=== PATIENT | male | born 1975 | race African-American/Black ===

== ENCOUNTER 2016-09-22 13:50 | Emergency (ER) | payer OTHER ==
--- NOTE | 2016-09-22 14:20 | ER Document Report ---
HPI - HPI Patient complains to provider of: rash Pain Level: 0 Context: 41 yo male c/o rash to both arms and back of neck x 2 weeks. denies new meds or contacts. + pruritic. no fever Associated Symptoms: None Exacerbated by: Denies Relieved by: Denies Similar symptoms previously: No Recently seen / treated by doctor: No - ROS Systems Reviewed and Negative: Yes All other systems reviewed and negative - DERM Skin Color: Normal Past Medical History - General Information source: Patient - Social History Smoking Status: Never Smoker Frequency of alcohol use: None Drug Abuse: None Lives with: Family Family History: CVA, Hypertension Patient has suicidal ideation: No Patient has homicidal ideation: No - Past Medical History Cardiac Medical History: Reports: Hx Hypertension Neurological Medical History: Reports: Hx Cerebrovascular Accident Renal/ Medical History: Denies: Hx Peritoneal Dialysis - Immunizations Hx Diphtheria, Pertussis, Tetanus Vaccination: No Vertical Provider Document - CONSTITUTIONAL Agree With Documented VS: Yes Exam Limitations: No Limitations - INFECTION CONTROL TRAVEL OUTSIDE OF THE [place] IN LAST 30 DAYS: No - HEENT HEENT: Atraumatic, Normal ENT Exam, PERRLA Notes: no buccal or lingual lesions - NECK Neck: Normal Inspection, Supple - RESPIRATORY Respiratory: Breath Sounds Normal, No Respiratory Distress O2 Sat by Pulse Oximetry: 98 - CARDIOVASCULAR Cardiovascular: Regular Rate, Regular Rhythm - MUSCULOSKELETAL/EXTREMETIES Musculoskeletal/Extremeties: MAZEINAB FROM - NEURO Level of Consciousness: Awake, Alert - DERM Integumentary: Warm, Dry, Rash - + eczematous patches to bilat volar forearms and posterior neck. + scaling. no sloughing Course - Re-evaluation Re-evalutation: 09/22/16 14:27 BP noted to be elevatd. pt has hx/o HTN. taking meds as prescribed. denies any headache/dizziness, - Vital Signs Vital signs: Temp Pulse Resp BP Pulse Ox 97.8 F 76 14 157/98 H 98 09/22/16 13:57 09/22/16 13:57 09/22/16 13:57 09/22/16 13:57 09/22/16 13:57 Discharge - Discharge Clinical Impression: Rash Condition: Stable Disposition: HOME, SELF-CARE Instructions: Atopic Dermatitis (Eczema) ([facility]), Topical Steroid Cream or Ointment ([facility]) Additional Instructions: keep skin moisturized, recommend Eucerin or Cetaphil Lotion Avoid lotions containing alcohol Use topical steroid as prescribed follow up with primary care if symptoms persist Prescriptions: Clobetasol Propionate/Emoll [Clobetasol Emollient 0.05% Crm] 1 applic TP BID # 45 g Forms: Elevated Blood Pressure
[2016-09-22 14:46] VITALS: BP 130/86
== END 2016-09-22 14:46 | disposition home or self-care (01) ==
LOC: ER 13:50
DX: R21 Rash and other nonspecific skin eruption (principal); I10 Essential (primary) hypertension
CPT/HCPCS: 99282

== ENCOUNTER 2017-11-14 21:24 | Emergency (ER) | payer OTHER ==
--- NOTE | 2017-11-15 00:16 | ER Document Report ---
ED Medical Screen (RME) - General Chief Complaint: Abdominal Pain Stated Complaint: STOMACH PAIN Time Seen by Provider: 11/15/17 00:11 Mode of Arrival: Ambulatory Information source: Patient Notes: Patient is an otherwise healthy 42-year-old male who presents with chief complaint of diarrhea. Patient reports that Tuesday night immediately after eating at [employer] he began having vomiting and diarrhea, 3 people in his democrat also had similar symptoms. Patient reports that the vomiting has subsided however he is still having recurrent diarrhea. Patient denies any fevers, patient denies any history of any abdominal surgeries. Exam: Generalized tenderness to palpation to abdomen, no rebound no guarding no peritoneal signs. I have greeted and performed a rapid initial assessment of this patient. A comprehensive ED assessment and evaluation of the patient, analysis of test results and completion of the medical decision making process will be conducted by additional ED providers. Dictation of this chart was performed using voice recognition software; therefore, there may be some unintended grammatical errors. TRAVEL OUTSIDE OF THE [place] IN LAST 30 DAYS: No - Related Data Allergies/Adverse Reactions: No Known Allergies Allergy (Verified 09/22/16 13:57) Past Medical History - Past Medical History Cardiac Medical History: Reports: Hx Hypertension Neurological Medical History: Reports: Hx Cerebrovascular Accident Renal/ Medical History: Denies: Hx Peritoneal Dialysis - Immunizations Hx Diphtheria, Pertussis, Tetanus Vaccination: No Physical Exam - Vital signs Vitals: Temp Pulse Resp BP Pulse Ox 99.3 F 67 16 137/81 H 100 11/14/17 21:35 11/14/17 21:35 11/14/17 21:35 11/14/17 21:35 11/14/17 21:35 Course - Vital Signs Vital signs: Temp Pulse Resp BP Pulse Ox 99.3 F 67 16 137/81 H 100 11/14/17 21:35 11/14/17 21:35 11/14/17 21:35 11/14/17 21:35 11/14/17 21:35
[2017-11-15 00:35] LABS: ABSOLUTE EOSINOPHILS # (AUTO) 0.1 10^3/uL (0.0-0.6); ABSOLUTE MONOCYTES (AUTO) 0.5 10^3/uL (0.1-1.4); BASOPHILS % (AUTO) 0.8 % (0-2); EOSINOPHILS % (AUTO) 2.6 % (0-6); HEMATOCRIT 41.7 % (37.9-51.0); HEMOGLOBIN 13.9 g/dL (13.5-17.0); LYMPHOCYTES % (AUTO) 35.4 % (13-45); MEAN CORPUSCULAR HEMOGLOBIN 33.2 pg (27.0-33.4); MEAN CORPUSCULAR HGB CONC 33.3 g/dL (32.0-36.0); MEAN CORPUSCULAR VOLUME 100 fl (80-97); MONOCYTES % (AUTO) 8.5 % (3-13); PLATELET COUNT 223 10^3/uL (150-450); RED BLOOD COUNT 4.18 10^6/uL (4.35-5.55); RED CELL DISTRIBUTION WIDTH 13.9 % (11.5-14.0); SEGMENTED NEUTROPHILS % (AUTO) 52.7 % (42-78); TOTAL CELLS COUNTED % (AUTO) 100 %; WHITE BLOOD COUNT 5.8 10^3/uL (4.0-10.5)
[2017-11-15] MEDS ORDERED: NORMAL SALINE 1000 ML 1,000 ML IV ONE (00:45)
[2017-11-15] MEDS ORDERED: ONDANSETRON HCL INJ/PF 4 MG/2 ML SDV IV ONE (00:45)
[2017-11-15 00:46] LABS: APPEARANCE,URINE CLOUDY; BILIRUBIN,URINE NEGATIVE (NEGATIVE); COLOR,URINE YELLOW; GLUCOSE, URINE 50 mg/dL (NEGATIVE); KETONES,URINE NEGATIVE (NEGATIVE); LEUKOCYTE ESTERASE,URINE NEGATIVE (NEGATIVE); NITRITE,URINE NEGATIVE (NEGATIVE); PROTEIN,URINE 30 mg/dL (NEGATIVE); URINE SPECIFIC GRAVITY 1.014
[2017-11-15 01:08] LABS: ALANINE AMINOTRANSFERASE 60 U/L (21-72); ALBUMIN 4.8 g/dL (3.5-5.0); ALKALINE PHOSPHATASE 117 U/L (38-126); ANION GAP 14 (5-19); ASPARTATE AMINO TRANSFERASE 49 U/L (17-59); BILIRUBIN,DIRECT 0.3 mg/dL (0.0-0.4); BILIRUBIN,TOTAL 0.6 mg/dL (0.2-1.3); BLOOD UREA NITROGEN 19 mg/dL (7-20); CARBON DIOXIDE 28 mmol/L (22-30); CHLORIDE 106 mmol/L (98-107); GLUCOSE 118 mg/dL (75-110); LIPASE 69.4 U/L (23-300); POTASSIUM 4.4 mmol/L (3.6-5.0); SODIUM 147.6 mmol/L (137-145); TOTAL PROTEIN 8.3 g/dL (6.3-8.2)
--- NOTE | 2017-11-15 01:36 | ER Document Report ---
ED General - General Chief Complaint: Abdominal Pain Stated Complaint: STOMACH PAIN Time Seen by Provider: 11/15/17 00:11 Mode of Arrival: Ambulatory Notes: Patient is a pleasant 42-year-old male who presents with complaint of some vomiting diarrhea after eating at [employer]. 3 other family members also had similar symptoms after eating there. Symptoms have been ongoing since yesterday. No fevers. Some crampy abdominal pain. No blood in his stool. No mucousy stools. No blood in emesis. No other complaints at this time. TRAVEL OUTSIDE OF THE [place] IN LAST 30 DAYS: No - Related Data Allergies/Adverse Reactions: No Known Allergies Allergy (Verified 09/22/16 13:57) Past Medical History - General Information source: Patient - Social History Smoking Status: Never Smoker Frequency of alcohol use: None Drug Abuse: None Family History: CVA, Hypertension Patient has suicidal ideation: No Patient has homicidal ideation: No - Past Medical History Cardiac Medical History: Reports: Hx Hypertension Neurological Medical History: Reports: Hx Cerebrovascular Accident Renal/ Medical History: Denies: Hx Peritoneal Dialysis - Immunizations Hx Diphtheria, Pertussis, Tetanus Vaccination: No Review of Systems - Review of Systems Notes: My Normal Review Basic REVIEW OF SYSTEMS: CONSTITUTIONAL : Denies fever, chills, or sweats. Denies recent illness. CARDIOVASCULAR: Denies chest pain. RESPIRATORY: Denies cough, cold, or chest congestion. Denies shortness of breath, difficulty breathing, or wheezing. GASTROINTESTINAL: Abdominal pain. Vomiting and diarrhea. GENITOURINARY: Denies difficulty urinating, painful urination, burning, frequency, or blood in urine. MUSCULOSKELETAL: Denies neck or back pain or joint pain or swelling. SKIN: Denies rash or skin lesions. NEUROLOGICAL: Denies altered mental status or loss of consciousness. Denies headache. Denies weakness or paralysis or loss of use of either side. Denies problems with gait or speech. Denies sensory or motor loss. ALL OTHER SYSTEMS REVIEWED AND NEGATIVE. Physical Exam - Vital signs Vitals: Temp Pulse Resp BP Pulse Ox 99.3 F 67 16 137/81 H 100 11/14/17 21:35 11/14/17 21:35 11/14/17 21:35 11/14/17 21:35 11/14/17 21:35 - Notes Notes: General Appearance: Well nourished, alert, cooperative, no acute distress, no obvious discomfort. Well appearing. Vitals: reviewed, See vital signs table. Head: no swelling or tenderness to the head Eyes: PERRL, EOMI, Conjuctiva clear Mouth: No decreasd moisture Neck: Supple, no neck tenderness, No thyromegaly Lungs: No wheezing, No rales, No rhonci, No accessory muscle use, good air exchange bilaterally. Heart: Normal rate, Regular rythm, No murmur, no rub Abdomen: Normal BS, soft, No rigidity, mild diffuse abdominal tenderness to palpation., No guarding, no rebound Extremities: strength 5/5 in all extremities, good pulses in all extremities, no swelling or tenderness in the extremities, no edema. Skin: warm, dry, appropriate color, no rash Neuro: speech clear, oriented x 3, normal affect, responds appropriately to questions. Course - Re-evaluation Re-evalutation: 11/15/17 06:11 Patient received IV fluids. His lab to evaluation is unremarkable. His nausea did improve with Phenergan. Given the L4, disc and arrest in foods. Currently he does not have any blood in stool, he does not have leukocytosis, does not have fever. I think it is unlikely that this is a bacterial cause that requires antibiotics. Informed him he should return to ER if he does start having fevers, worsening abdominal pain, or any blood in the stool. Patient agrees with plan and will be discharged home. Dictation of this chart was performed using voice recognition software; therefore, there may be some unintended grammatical errors. - Vital Signs Vital signs: Temp Pulse Resp BP Pulse Ox 98 F 60 16 135/84 H 98 11/15/17 05:19 11/15/17 05:19 11/15/17 05:19 11/15/17 05:19 11/15/17 05:19 - Laboratory Result Diagrams: 11/14/17 23:58 11/14/17 23:58 Laboratory results interpreted by me: 11/14/17 11/14/17 11/14/17 23:58 23:58 23:58 RBC 4.18 L MCV 100 H Sodium 147.6 H Glucose 118 H Total Protein 8.3 H Urine Protein 30 H Urine Glucose (UA) 50 H Urine Urobilinogen 2.0 H Discharge - Discharge Clinical Impression: Abdominal pain Qualifiers: Abdominal location: generalized Qualified Code(s): R10.84 - Generalized abdominal pain Vomiting Qualifiers: Vomiting type: unspecified Vomiting Intractability: non-intractable Nausea presence: with nausea Qualified Code(s): R11.2 - Nausea with vomiting, unspecified Diarrhea Qualifiers: Diarrhea type: unspecified type Qualified Code(s): R19.7 - Diarrhea, unspecified Condition: Good Disposition: HOME, SELF-CARE Additional Instructions: Please eat very bland foods over the next 48 hours. Drink non-caffeinated liquids. please return to the ER if you have intractable vomiting, fevers, blood in your stool, or if you feel that you are worsening. Prescriptions: Promethazine HCl [Phenergan 25 mg Tablet] 1 tab PO Q6H PRN #15 tablet PRN Reason: Forms: Return to Work Referrals: TISHA GUNN MD [Primary Care Provider] - 11/17/17
[2017-11-15] MEDS ORDERED: PROMETHAZINE HCL INJ 25 MG/1 ML VIAL IM ONE (02:13)
[2017-11-15 05:20] VITALS: BP 135/84
== END 2017-11-15 05:28 | disposition home or self-care (01) ==
LOC: ER 21:24
DX: R10.84 Generalized abdominal pain (principal); R11.2 Nausea with vomiting, unspecified; R19.7 Diarrhea, unspecified; I10 Essential (primary) hypertension
CPT/HCPCS: 99284; 96372; 96361; 96374; 36415; 83690; 85025; 80053; 81001; J2550; J2405; J7030

== ENCOUNTER → 2018-03-15 | Outpatient (CLI) | payer OTHER ==
--- NOTE | 2018-03-15 12:44 | RADIOLOGY REPORT (SQ) ---
EXAM DESCRIPTION: MRI HEAD WITHOUT COMPLETED DATE/TIME: 03/15/2018 12:21 pm REASON FOR STUDY: CEREBRAL INFARCTION, UNSPECIFIED I63.9 CEREBRAL INFARCTION, UNSPECIFIED COMPARISON: CT brain 12/18/2015, 08/19/2015, 06/24/2015 MRI brain 06/24/2015 TECHNIQUE: Multiplanar imaging includes non-contrasted T1, T2, FLAIR, and diffusion with ADC map seq uences. Images stored on PACS. LIMITATIONS: None. FINDINGS: PITUITARY FOSSA: No anomalies. CSF SPACES: Normal in size and contour. No hemorrhage. CEREBRUM: T2 and gradient echo T2 images demonstrate an 8 mm hypointense lesion in the superior edge left basal ganglia, likely a small cavernous malformation or low-flow developmental venous anomaly. On coronal image 15, there is likely an associated venous angioma in the deep periventricular white m atter, with adjacent gliosis. This accounts for the CT findings of hypodensity over the left deep po sterior frontal white matter/upper left basal ganglia. These findings are similar compared to studie s dating back to 2016. Postcontrast T1 axial sagittal and coronal images are recommended for followu p. Remainder of the cerebral hemispheres are otherwise unremarkable. POSTERIOR FOSSA: No signal alteration. No hemorrhage. No edema, masses or mass effect. Internal yury tory canals, cerebello-pontine angles, mastoids normal. DIFFUSION IMAGING: Negative for acute or sub-acute infarction. ORBITS: No masses. Globes normal. PARANASAL SINUSES: No fluid levels. Mucosa normal. OTHER: No other significant finding. IMPRESSION: No MRI evidence of acute infarct. No acute intracranial hemorrhage. 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 Surrounding gliosis. Postcontrast im ages are recommended for followup EVIDENCE OF ACUTE STROKE: NO. TECHNICAL DOCUMENTATION: JOB ID: [id number] [employer]- All Rights Reserved Reading location - IP/workstation name: [email or web address]
== END ==
LOC: RAD 10:03
PROVIDERS: ATTEND Internal Medicine
DX: I63.9 Cerebral infarction, unspecified (principal)
CPT/HCPCS: 70551

== ENCOUNTER 2018-11-25 12:39 | Emergency (ER) | payer OTHER ==
--- NOTE | 2018-11-25 13:38 | ER Document Report ---
ED Medical Screen (RME) - General Chief Complaint: High Blood Pressure Stated Complaint: HIGH BLOOD PRESSURE Time Seen by Provider: 11/25/18 13:26 Primary Care Provider: TISHA GUNN MD [Primary Care Provider] - Follow up as needed Mode of Arrival: Wheelchair Information source: Patient Notes: 43-year-old male presented to ED for elevated blood pressure triple over triples for the last several days he is already on 5 blood pressure medications to keep his blood pressure down because he had 2 previous strokes and 3 months ago he had a brain leak that they did not call a stroke. He is completely alert oriented respirations regular and unlabored able to answer all questions appropriately. He has equal leather stretcher equal leg lengths equal arm no palmar drift. is at the bedside. She states he just has been a little weaker than normal and his blood pressures been so high that they were concerned that he would have another stroke. I have greeted and performed a rapid initial assessment of this patient. A comprehensive ED assessment and evaluation of the patient, analysis of test results and completion of medical decision making process will be conducted by an additional ED providers. TRAVEL OUTSIDE OF THE [place] IN LAST 30 DAYS: No - Related Data Allergies/Adverse Reactions: No Known Allergies Allergy (Verified 11/25/18 12:40) Past Medical History - Social History Chew tobacco use (# tins/day): No Frequency of alcohol use: Social Drug Abuse: None - Past Medical History Cardiac Medical History: Reports: Hx Hypertension Neurological Medical History: Reports: Hx Cerebrovascular Accident Renal/ Medical History: Denies: Hx Peritoneal Dialysis - Immunizations Hx Diphtheria, Pertussis, Tetanus Vaccination: No Physical Exam - Vital signs Vitals: Temp Pulse Resp BP Pulse Ox 97.5 F 75 16 153/92 H 97 11/25/18 12:53 11/25/18 12:53 11/25/18 12:53 11/25/18 12:53 11/25/18 12:53 Course - Vital Signs Vital signs: Temp Pulse Resp BP Pulse Ox 97.5 F 75 16 153/92 H 97 11/25/18 12:53 11/25/18 12:53 11/25/18 12:53 11/25/18 12:53 11/25/18 12:53 Doctor's Discharge - Discharge Referrals: TISHA GUNN MD [Primary Care Provider] - Follow up as needed
[2018-11-25 13:42] LABS: INTERNATIONAL RATION (INR) 0.96; PARTIAL THROMBOPLASTIN TIME 26.3 SEC (23.5-35.8); PROTHROMBIN TIME 12.8 SEC (11.4-15.4)
[2018-11-25 13:49] LABS: ABSOLUTE BASOPHILS # (AUTO) 0.1 10^3/uL (0.0-0.2); ABSOLUTE EOSINOPHILS # (AUTO) 0.2 10^3/uL (0.0-0.6); ABSOLUTE LYMPHOCYTES (AUTO) 2.1 10^3/uL (0.5-4.7); ABSOLUTE MONOCYTES (AUTO) 0.4 10^3/uL (0.1-1.4); ABSOLUTE NEUT (AUTO) 3.9 10^3/uL (1.7-8.2); BASOPHILS % (AUTO) 0.9 % (0-2); HEMATOCRIT 42.6 % (37.9-51.0); HEMOGLOBIN 14.4 g/dL (13.5-17.0); LYMPHOCYTES % (AUTO) 31.7 % (13-45); MEAN CORPUSCULAR HEMOGLOBIN 33.2 pg (27.0-33.4); MEAN CORPUSCULAR HGB CONC 33.9 g/dL (32.0-36.0); MEAN CORPUSCULAR VOLUME 98 fl (80-97); MONOCYTES % (AUTO) 6.6 % (3-13); PLATELET COUNT 196 10^3/uL (150-450); RED BLOOD COUNT 4.34 10^6/uL (4.35-5.55); RED CELL DISTRIBUTION WIDTH 14.1 % (11.5-14.0); SEGMENTED NEUTROPHILS % (AUTO) 57.8 % (42-78); TOTAL CELLS COUNTED % (AUTO) 100 %; WHITE BLOOD COUNT 6.7 10^3/uL (4.0-10.5)
[2018-11-25 13:52] LABS: ALKALINE PHOSPHATASE 111 U/L (38-126); ANION GAP 7 (5-19); ASPARTATE AMINO TRANSFERASE 50 U/L (17-59); BILIRUBIN,DIRECT 0.5 mg/dL (0.0-0.4); BILIRUBIN,TOTAL 0.7 mg/dL (0.2-1.3); BLOOD UREA NITROGEN 21 mg/dL (7-20); CALCIUM 9.6 mg/dL (8.4-10.2); CARBON DIOXIDE 27 mmol/L (22-30); CHLORIDE 104 mmol/L (98-107); CREATINE KINASE 93 U/L (55-170); GLUCOSE 161 mg/dL (75-110); POTASSIUM 3.8 mmol/L (3.6-5.0); TOTAL PROTEIN 7.3 g/dL (6.3-8.2)
[2018-11-25 14:02] LABS: APPEARANCE,URINE CLEAR; BILIRUBIN,URINE NEGATIVE (NEGATIVE); COLOR,URINE YELLOW; GLUCOSE, URINE NEGATIVE (NEGATIVE); KETONES,URINE NEGATIVE (NEGATIVE); LEUKOCYTE ESTERASE,URINE NEGATIVE (NEGATIVE); NITRITE,URINE NEGATIVE (NEGATIVE); PROTEIN,URINE 100 mg/dL (NEGATIVE); URINE SPECIFIC GRAVITY 1.017; UROBILINOGEN,URINE NEGATIVE mg/dL (<2.0)
[2018-11-25 14:05] LABS: CREATINE KINASE MB < 0.22 ng/mL (<4.55); TROPONIN I < 0.012 ng/mL
--- NOTE | 2018-11-25 14:08 | ER Document Report ---
ED General - General Chief Complaint: High Blood Pressure Stated Complaint: HIGH BLOOD PRESSURE Time Seen by Provider: 11/25/18 13:26 Primary Care Provider: MODESTO KIDD MD [ACTIVE STAFF] - Follow up in 3-5 days (for cardiology follow up) TISHA GUNN MD [Primary Care Provider] - Follow up in 3-5 days Mode of Arrival: Wheelchair TRAVEL OUTSIDE OF THE [place] IN LAST 30 DAYS: No - HPI Notes: 43-year-old male with history of uncontrolled hypertension and hemorrhagic stroke to the emergency department with with complaints of elevated blood pressure and fatigue for the past week. Patient states that he they saw his primary care on Tuesday and patient was started on another blood pressure medicine. They were also given instructions to provide a 24-hour urine to primary care doctor, Dr. Gunn. states that since then the patient has not had good controlled blood pressures and he is been feeling fatigued. Blood pressures have been running about 179/110. states that the blood pressures do not come down after administration of blood pressure medicine. 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 Patient denies any headaches, any chest pain, shortness of breath, leg swelling, back pain, nausea, diaphoresis, vomiting, or any focal neurological deficit. He has not had his blood pressure medicine today yet. - Related Data Allergies/Adverse Reactions: No Known Allergies Allergy (Verified 11/25/18 12:40) Past Medical History - General Information source: Patient, Relative - Social History Smoking Status: Current Some Day Smoker Chew tobacco use (# tins/day): No Frequency of alcohol use: Social Drug Abuse: None Lives with: Spouse/Significant other Family History: CVA, Hypertension Patient has suicidal ideation: No Patient has homicidal ideation: No - Past Medical History Cardiac Medical History: Reports: Hx Hypertension Neurological Medical History: Reports: Hx Cerebrovascular Accident Renal/ Medical History: Denies: Hx Peritoneal Dialysis - Immunizations Hx Diphtheria, Pertussis, Tetanus Vaccination: No Review of Systems - Review of Systems Constitutional: Other - Fatigue. denies: Chills, Fever EENT: No symptoms reported. denies: Blurred vision, Double vision Cardiovascular: denies: Chest pain, Palpitations, Dyspnea, Syncope, Dizziness Respiratory: denies: Cough, Short of breath Gastrointestinal: denies: Abdominal pain, Diarrhea, Nausea, Vomiting Musculoskeletal: No symptoms reported Skin: No symptoms reported Hematologic/Lymphatic: No symptoms reported Neurological/Psychological: No symptoms reported -: Yes All other systems reviewed and negative Physical Exam - Vital signs Vitals: Temp Pulse Resp BP Pulse Ox 97.5 F 75 16 153/92 H 97 11/25/18 12:53 11/25/18 12:53 11/25/18 12:53 11/25/18 12:53 11/25/18 12:53 - General General appearance: Appears well, Alert In distress: None - HEENT Head: Normocephalic, Atraumatic Eyes: Normal Pupils: PERRL - Respiratory Respiratory status: No respiratory distress Chest status: Nontender Breath sounds: Normal Chest palpation: Normal - Cardiovascular Rhythm: Regular Heart sounds: Normal auscultation, S1 appreciated, S2 appreciated Murmur: No Notes: No pitting edema - Abdominal Inspection: Normal Distension: No distension Bowel sounds: Normal Tenderness: Nontender Organomegaly: No organomegaly - Back Back: Normal. No: CVA tenderness - Neurological Neuro grossly intact: Yes Cognition: Normal Orientation: AAOx4 Lona Coma Scale Eye Opening: Spontaneous Lona Coma Scale Verbal: Oriented Troy Coma Scale Motor: Obeys Commands Troy Coma Scale Total: 15 Speech: Normal Cranial nerves: Normal. No: Facial palsy, Forehead sparing, Gaze palsy, Sensory deficit, Tongue deviation Cerebellar coordination: Normal, Heel-galvan - Normal [id number] bilaterally. 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 No: Pronator drift - Normal [id number] bilaterally Sensory: Normal - Psychological Associated symptoms: Normal affect, Normal mood - Skin Skin Temperature: Warm Skin Moisture: Dry Skin Color: Normal Course - Re-evaluation Re-evalutation: 11/25/18 2 Laboratory 11/25/18 11/25/18 11/25/18 13:22 13:22 13:22 WBC 6.7 RBC 4.34 L Hgb 14.4 Hct 42.6 MCV 98 H MCH 33.2 MCHC 33.9 RDW 14.1 H Plt Count 196 Lymph % (Auto) 31.7 [place] % (Auto) 6.6 Eos % (Auto) 3.0 Baso % (Auto) 0.9 Absolute Neuts (auto) 3.9 Absolute Lymphs (auto) 2.1 Absolute Monos (auto) 0.4 Absolute Eos (auto) 0.2 Absolute Basos (auto) 0.1 Seg Neutrophils % 57.8 PT 12.8 INR 0.96 APTT 26.3 Sodium 138.3 Potassium 3.8 Chloride 104 Carbon Dioxide 27 Anion Gap 7 BUN 21 H Creatinine 1.16 Est GFR ( Amer) > 60 Est GFR (MDRD) Non-Af > 60 Glucose 161 H Calcium 9.6 Total Bilirubin 0.7 Direct Bilirubin 0.5 H Neonat Total Bilirubin Not Reportable Neonat Direct Bilirubin Not Reportable Neonat Indirect Bili Not Reportable AST 50 ALT 62 Alkaline Phosphatase 111 Creatine Kinase 93 CK-MB (CK-2) Troponin I NT-Pro-B Natriuret Pep Total Protein 7.3 Albumin 4.0 Lipase 92.0 Urine Color Urine Appearance Urine pH Ur Specific Thornton Urine Protein Urine Glucose (UA) Urine Ketones Urine Blood Urine Nitrite Urine Bilirubin Urine Urobilinogen Ur Leukocyte Esterase Urine WBC (Auto) Urine RBC (Auto) U Hyaline Cast (Auto) Urine Mucus (Auto) Urine Ascorbic Acid 11/25/18 11/25/18 11/25/18 13:22 13:22 13:30 WBC RBC Hgb Hct MCV MCH MCHC RDW Plt Count Lymph % (Auto) [place] % (Auto) Eos % (Auto) Baso % (Auto) Absolute Neuts (auto) Absolute Lymphs (auto) Absolute Monos (auto) Absolute Eos (auto) Absolute Basos (auto) Seg Neutrophils % PT INR APTT Sodium Potassium Chloride Carbon Dioxide Anion Gap BUN Creatinine Est GFR ( Amer) Est GFR (MDRD) Non-Af Glucose Calcium Total Bilirubin Direct Bilirubin Neonat Total Bilirubin Neonat Direct Bilirubin Neonat Indirect Bili AST ALT Alkaline Phosphatase Creatine Kinase CK-MB (CK-2) < 0.22 Troponin I < 0.012 NT-Pro-B Natriuret Pep 54 Total Protein Albumin Lipase Urine Color YELLOW Urine Appearance CLEAR Urine pH 5.0 Ur Specific Thornton 1.017 Urine Protein 100 H Urine Glucose (UA) NEGATIVE Urine Ketones NEGATIVE Urine Blood NEGATIVE Urine Nitrite NEGATIVE Urine Bilirubin NEGATIVE Urine Urobilinogen NEGATIVE Ur Leukocyte Esterase NEGATIVE Urine WBC (Auto) 2 Urine RBC (Auto) 1 U Hyaline Cast (Auto) 4 Urine Mucus (Auto) FEW Urine Ascorbic Acid NEGATIVE Chest X-Ray 11/25/18 13:26 IMPRESSION: CARDIAC ENLARGEMENT WITHOUT FAILURE. Head CT 11/25/18 13:26 IMPRESSION: No acute intracranial hemorrhage or acute territorial infarct. Redemonstration of low attenuation area at the left basal ganglia, previously described as a cavernous malformation with venous angioma. EVIDENCE OF ACUTE STROKE: NO. Impression: Hypertension, fatigue. EKG and labs as well as head CT and chest x- ray are all reassuring. I did give patient his carvedilol, amlodipine, and lisinopril here tonight. Given his history of his high blood pressure and the difficulty of controlling it I will send him to follow-up with cardiology. Sounds like Dr. Gunn is going to get a 24-hour cortisol and possibly catecholamines and I have encouraged patient to provide that sample to him by Tuesday. We will write him for a work note for the next several days and have encouraged him to call cardiology on Tuesday without fail. Encouraged him to return if any worsening symptoms such as chest pain, shortness of breath, focal neurological deficit, or any other concerns. Patient and agree with the plan. - Vital Signs Vital signs: Temp Pulse Resp BP Pulse Ox 97.5 F 75 18 167/98 H 97 11/25/18 18:46 11/25/18 12:53 11/25/18 18:30 11/25/18 18:30 11/25/18 18:30 - Laboratory Result Diagrams: 11/25/18 13:22 11/25/18 13:22 Laboratory results interpreted by me: 11/25/18 11/25/18 11/25/18 13:22 13:22 13:30 RBC 4.34 L MCV 98 H RDW 14.1 H BUN 21 H Glucose 161 H Direct Bilirubin 0.5 H Urine Protein 100 H - Diagnostic Test Radiology reviewed: Image reviewed, Reports reviewed - EKG Interpretation by Me EKG shows normal: Sinus rhythm Rate: Normal Rhythm: NSR Voltage: Consistant with LVH When compared to previous EKG there are: No significant change Additional EKG results interpreted by me: 11/25/18 20:36 No STEMI. T wave abnormalities in the lateral leads. LVH. These finds are not new in comparison to prior EKG. There is no significant changes from prior EKG on 08/2015. Discharge - Discharge Clinical Impression: High blood pressure Qualifiers: Hypertension type: essential hypertension Qualified Code(s): I10 - Essential (primary) hypertension Fatigue Qualifiers: Fatigue type: unspecified Qualified Code(s): R53.83 - Other fatigue Condition: Stable Disposition: HOME, SELF-CARE Instructions: High Blood Pressure ([facility]) Additional Instructions: FOLLOW UP WITH PRIMARY CARE AND CARDIOLOGY. RETURN IF ANY WORSENING SYMPTOMS SUCH CHEST PAIN, PASSING OUT, HEADACHE, SHORTNESS OF BREATH. GIVE 24 HOUR SPECIMEN TO YOUR PRIMARY CARE ON TUESDAY. Forms: Return to Work Referrals: TISHA GUNN MD [Primary Care Provider] - Follow up in 3-5 days MODESTO KIDD MD [ACTIVE STAFF] - Follow up in 3-5 days (for cardiology follow up)
--- NOTE | 2018-11-25 14:11 | RADIOLOGY REPORT (SQ) ---
EXAM DESCRIPTION: CT HEAD WITHOUT COMPLETED DATE/TIME: 11/25/2018 1:56 pm REASON FOR STUDY: headache previous munoz and bleeds htn COMPARISON: MRI head 03/15/2018, CT head 12/18/2015. TECHNIQUE: Axial images acquired through the brain without intravenous contrast. Images reviewed wi th bone, brain and subdural windows. Images stored on PACS. All CT scanners at this facility use dose modulation, iterative reconstruction, and/or weight based d osing when appropriate to reduce radiation dose to as low as reasonably achievable (ALARA). [facility]: Dose Right [facility]: CareDose [facility]: Dose Right [facility]: Teradose 4D [facility]: [employer] RADIATION DOSE: CT Rad equipment meets quality standard of care and radiation dose reduction techniq ues were employed. CTDIvol: 48.6 mGy. DLP: 929 mGy-cm. mGy. LIMITATIONS: None. FINDINGS: VENTRICLES: Normal size and contour. CEREBRUM: No mass effect. No hemorrhage. No midline shift. 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 No evidence for acute territorial infarction. Normal louis/white matter differentiation. CEREBELLUM: No mass effect. No hemorrhage. No alteration of density. No evidence for acute infarct ion. EXTRAAXIAL SPACES: No fluid collections. ORBITS AND GLOBE: Symmetrical contour of globe without masses. CALVARIUM: No depressed fracture. PARANASAL SINUSES: No air-fluid level. SOFT TISSUES: No hematoma. IMPRESSION: No acute intracranial hemorrhage or acute territorial infarct. Redemonstration of low a ttenuation area at the left basal ganglia, previously described as a cavernous malformation with veno us angioma. EVIDENCE OF ACUTE STROKE: NO. COMMENT: Quality ID # [id number]: Final reports with documentation of one or more dose reduction techniques (e.g., Automated exposure control, adjustment of the mA and/or kV according to patient size, use of iterative reconstruction technique) TECHNICAL DOCUMENTATION: JOB ID: [id number] 2010 [employer]- All Rights Reserved Reading location - IP/workstation name: [email or web address]
--- NOTE | 2018-11-25 14:35 | RADIOLOGY REPORT (SQ) ---
EXAM DESCRIPTION: CHEST 2 VIEWS COMPLETED DATE/TIME: 11/25/2018 2:27 pm REASON FOR STUDY: headache previous munoz and bleeds htn COMPARISON: None. NUMBER OF VIEWS: Two view. TECHNIQUE: Frontal and lateral radiographic views of the chest acquired. LIMITATIONS: None. FINDINGS: LUNGS AND PLEURA: No opacities, masses or pneumothorax. No pleural effusion. MEDIASTINUM AND HILAR STRUCTURES: No masses. No contour abnormalities. HEART AND VASCULAR STRUCTURES: Heart enlarged without failure. Aorta normal for age. BONES: No acute findings. HARDWARE: None in the chest. OTHER: No other significant finding. IMPRESSION: CARDIAC ENLARGEMENT WITHOUT FAILURE. TECHNICAL DOCUMENTATION: JOB ID: [id number] [employer] All Rights Reserved Reading location - IP/workstation name: [email or web address]
[2018-11-25] MEDS ORDERED: AMLODIPINE BESYLATE 10 MG TABLET PO ONE (16:30)
[2018-11-25] MEDS ORDERED: LISINOPRIL 10 MG TABLET PO ONE (16:30)
[2018-11-25] MEDS ORDERED: CARVEDILOL 12.5 MG TABLET PO ONE (16:31)
[2018-11-25 18:46] VITALS: BP 167/98
--- NOTE | 2018-11-25 19:07 | EKG REPORT ---
SEVERITY:- BORDERLINE ECG - SINUS RHYTHM BORDERLINE T ABNORMALITIES, LATERAL LEADS BORDERLINE ST ELEVATION, ANTERIOR LEADS : Confirmed by: Joanne Robert MD 25-Nov-2018 19:06:23
== END 2018-11-25 18:46 | disposition home or self-care (01) ==
LOC: ER 12:39
DX: I10 Essential (primary) hypertension (principal); R53.83 Other fatigue; R53.1 Weakness; F17.200 Nicotine dependence, unspecified, uncomplicated; Z86.73 Personal history of transient ischemic attack (TIA), and cerebral infarction without residual deficits; Z79.899 Other long term (current) drug therapy
CPT/HCPCS: 36415; 70450; 71046; 80053; 81001; 82550; 82553; 83690; 83880; 84484; 85025; 85610; 85730; 93005; 93010; 99284

== ENCOUNTER 2019-02-07 16:38 | Emergency (ER) | payer OTHER ==
[2019-02-07 16:47] VITALS: BP 140/92
[2019-02-07] MEDS ORDERED: MAG HYDROX/AL HYDROX/SIMETH SUSP 30 ML UDCUP PO ONE (17:03)
[2019-02-07] MEDS ORDERED: LIDOCAINE 2% VISCOUS SOLN 20 ML UDCUP PO ONE (17:03)
--- NOTE | 2019-02-07 17:04 | ER Document Report ---
HPI - HPI Patient complains to provider of: sore throat Time Seen by Provider: 02/07/19 16:48 Onset: Other - several weeks Onset/Duration: Persistent Quality of pain: Achy Pain Level: 1 Context: Patient presents complaining of sore throat for the past several weeks. Patient states that pain symptoms start when he is laying down. Patient reports occasional dry mouth. No fever. Associated Symptoms: denies: Fever, Headache, Vomiting Exacerbated by: Supine Relieved by: Denies Similar symptoms previously: No Recently seen / treated by doctor: No - ROS ROS below otherwise negative: Yes Systems Reviewed and Negative: Yes All other systems reviewed and negative - CONSTITUTIONAL Constitutional: DENIES: Fever - EENT EENT: REPORTS: Sore Throat. 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 IN LAST 30 DAYS: No - HEENT HEENT: Atraumatic, Normocephalic, Pharyngeal Tenderness, Pharyngeal Erythema. negative: Pharyngeal Exudate, Tympanic Membrane Red, Tympanic Membrane Bulging - NECK Neck: Normal Inspection, Supple. negative: Lymphadenopathy-Left, Lymphadenopathy-Right - RESPIRATORY Respiratory: Breath Sounds Normal, No Respiratory Distress, Chest Non-Tender - CARDIOVASCULAR Cardiovascular: Regular Rate, Regular Rhythm, No Murmur - MUSCULOSKELETAL/EXTREMETIES Musculoskeletal/Extremeties: MAEW - NEURO Level of Consciousness: Awake, Alert, Appropriate Motor/Sensory: No Motor Deficit - DERM Integumentary: Warm, Dry, No Rash Course - Re-evaluation Re-evalutation: 02/07/19 17:23 Patient's rapid strep test negative, throat culture is pending at this time. Patient presents with symptoms worrisome for possible GERD. Will treat symptomatically pending throat culture at this time. Patient encouraged to follow-up with primary doctor for recheck. - Vital Signs Vital signs: Temp Pulse Resp BP Pulse Ox 98.3 F 69 16 140/92 H 97 02/07/19 16:44 02/07/19 16:44 02/07/19 16:44 02/07/19 16:44 02/07/19 16:44 - Laboratory Laboratory results interpreted by me: 02/07/19 17:23 Labs- Entire Visit 02/07/19 16:44 Group A Strep Rapid NEGATIVE Discharge - Discharge Clinical Impression: Sore throat Condition: Stable Disposition: HOME, SELF-CARE Instructions: Reflux Disease (GERD) ([facility]), Sore Throat ([facility]) Additional Instructions: Return immediately for any new or worsening symptoms Followup with your primary care provider, call tomorrow to make a followup appointment Throat culture is pending, we will call if you need additional treatment Prescriptions: Sucralfate [Carafate 1 gm Tablet] 1 gm PO ACHS #40 tablet Omeprazole Magnesium [Prilosec Otc] 20 mg PO DAILY #15 tablet.dr Forms: Return to Work Referrals: TISHA GUNN MD [Primary Care Provider] - Follow up as needed
== END 2019-02-07 17:35 | disposition home or self-care (01) ==
LOC: ER 16:38
DX: J02.9 Acute pharyngitis, unspecified (principal); F17.200 Nicotine dependence, unspecified, uncomplicated; I10 Essential (primary) hypertension; Z86.73 Personal history of transient ischemic attack (TIA), and cerebral infarction without residual deficits
CPT/HCPCS: 87070; 87880; J3490

== ENCOUNTER → 2020-04-23 | Outpatient (CLI) | payer BC ==
--- NOTE | 2020-04-23 12:34 | RADIOLOGY REPORT (SQ) ---
EXAM DESCRIPTION: U/S RETROPERITON (RENAL/AORTA) IMAGES COMPLETED DATE/TIME: 04/23/2020 11:47 am REASON FOR STUDY: (R94.4)ABNORMAL RESULTS OF KIDNEY FUNCTION STUDIES R94.4 ABNORMAL RESULTS OF KIDN EY FUNCTION STUDIES COMPARISON: None. TECHNIQUE: Dynamic and static grayscale images acquired of the kidneys and bladder and recorded on P ACS. Additional selected color Doppler and spectral images recorded. LIMITATIONS: None. FINDINGS: RIGHT KIDNEY: Normal size, 12.1 cm. Increased echogenicity. 19 mm cyst. No solid or mini picious masses. No hydronephrosis. No calcifications. LEFT KIDNEY: Normal size 13 cm. Increased echogenicity. 15 mm cyst. No solid or suspicious masses . No hydronephrosis. No calcifications. BLADDER: The bladder is empty and therefore not evaluated. OTHER FINDINGS: No other significant finding. IMPRESSION: There is increased echogenicity in both kidneys. This may suggest medical renal disease . There is no hydronephrosis. No masses. The urinary bladder cannot be evaluated. TECHNICAL DOCUMENTATION: JOB ID: [id number] [employer]- All Rights Reserved Reading location - IP/workstation name: [email or web address]
== END ==
LOC: RAD 11:26
PROVIDERS: ATTEND Internal Medicine
DX: N18.9 Chronic kidney disease, unspecified (principal)
CPT/HCPCS: 76770